=== PATIENT | female | born 1985 | race Caucasian/White ===

== ENCOUNTER → 2020-01-13 | Outpatient (CLI) | payer BC, SELFPAY ==
[2020-01-13 20:15] LABS: Chlamydia Trachomatis by PCR Negative (Negative); Neisserai gonorrhoeae by PCR Negative (Negative); Probe Check PASS; Sample Adequacy Control PASS; Specimen Processing Control PASS
== END | disposition home or self-care (01) ==
PROVIDERS: Visit Provider Obstetrics & Gynecology
DX: Z11.3 Encounter for screening for infections with a predominantly sexual mode of transmission (principal)
CPT/HCPCS: 87491; 87591

== ENCOUNTER → 2020-01-22 16:43 | Outpatient (CLI) | payer BC, SELFPAY ==
[2020-01-22 17:29] LABS: Color, Urine Yellow (Yellow); Glucose, Dipstick Normal (Normal); Ketone-Dipstick 5 mg/dl (Negative); Leukocyte Esterase-Dipstick Negative /ul (Negative); Nitrite-Dipstick Negative (Negative); Occult Blood-Urine Negative /ul (Negative); Protein-Dipstick Negative (Negative); Urine Bilirubin Dipstick Negative (Negative); Urine Clarity Clear (Clear); Urine Urobilinogen Normal (Normal)
[2020-01-22 17:37] LABS: Amphetamine Urine VISTA NEGATIVE (<1000 ng/mL); Barbiturate Urine VISTA NEGATIVE (< 200 ng/mL); Benzodiazepine Urine VISTA NEGATIVE (< 200 ng/mL); Cocaine Urine VISTA NEGATIVE (< 300 ng/mL); Ecstacy Urine VISTA NEGATIVE (< 500 ng/mL); Methadone Urine VISTA NEGATIVE (< 300 ng/mL); PCP Urine VISTA NEGATIVE (< 25 ng/mL); THC Urine VISTA POSITIVE (< 50 ng/mL); Vista UDS pH Range 6
[2020-01-22 17:47] LABS: Absolute Lymphocyte Count 1.37 X10^3/uL (0.83-4.51); Absolute Neutrophil Count 5.7 X10^3/uL (2.0-7.7); Basophil# 0.03 X10^3/uL; Basophil% 0.4 % (0-1); Eosinophil# 0.03 X10^3/uL; Eosinophils% 0.4 % (0-5); Hemoglobin 13.1 g/dL (12.0-15.0); Lymphocyte # 1.37 X10^3/ul (4.0); Lymphocyte % 18.1 % (19-41); Mean Corp Hgb Conc 34.5 g/dL (32-36); Mean Corpuscular Hgb 33.8 pg (27.0-32.0); Mean Corpuscular Volume 97.9 fL (81-99); Mean Platelet Vol. 10.4 fl (6.2-12.0); Monocyte# 0.47 X10^3/uL; Monocyte% 6.2 % (0-10); NRBC Flagged by Analyzer 0 % (0-5); Neutrophil # 5.65 X10^3/uL (2.7-7.7); Neutrophil % 74.6 % (47-70); Platelet Count 245 K/mm3 (150-450); RBC Distribution Width CV 12.6 % (11.6-14.6); RBC Distribution Width SD 43.8 fl (35.1-43.9); Red Blood Count 3.88 M/mm3 (4.2-5.4); White Blood Count 7.6 K/mm3 (4.4-11.0)
[2020-01-22 18:35] LABS: Thyroid Stim Hormone (TSH) 0.76 uIU/mL (0.358-3.74)
[2020-01-23 11:46] LABS: HIV - WCH Non-Reactive (Nonreactive); Hepatitis B Surface Antigen Non-Reactive (Nonreactive); Hepatitis C Antibody Non-Reactive (Nonreactive); Rubella IgG 68.4 IU/mL
[2020-01-29 01:39] LABS: Prenatal RPR NONREACTIVE (NONREACTIVE)
== END ==
PROVIDERS: Visit Provider Obstetrics & Gynecology
DX: Z34.81 Encounter for supervision of other normal pregnancy, first trimester (principal)
CPT/HCPCS: 36415; 80307; 81002; 84443; 85025; 86703; 86762; 86803; 87340

== ENCOUNTER → 2020-06-01 | Outpatient (CLI) | payer BC, SELFPAY ==
[2020-06-01 16:57] LABS: Hematocrit 33.9 % (37-47); Hemoglobin 11.3 g/dL (12.0-15.0); Mean Corp Hgb Conc 33.3 g/dL (32-36); Mean Corpuscular Hgb 34.9 pg (27.0-32.0); Mean Corpuscular Volume 104.6 fL (81-99); Mean Platelet Vol. 10.8 fl (6.2-12.0); Platelet Count 208 K/mm3 (150-450); RBC Distribution Width CV 13.2 % (11.6-14.6); RBC Distribution Width SD 49.9 fl (35.1-43.9); Red Blood Count 3.24 M/mm3 (4.2-5.4); White Blood Count 7.3 K/mm3 (4.4-11.0)
[2020-06-01 17:09] LABS: Glucose Challenge Gest 1H 50g 109 mg/dL (70-140)
[2020-06-01 17:16] LABS: Vitamin D,25 Hydroxy 23.3 ng/mL
== END | disposition home or self-care (01) ==
LOC: LABSPEC 16:34
PROVIDERS: Visit Provider Student in an Organized Health Care Education/Training Program
DX: O99.282 Endocrine, nutritional and metabolic diseases complicating pregnancy, second trimester (principal); Z3A.00 Weeks of gestation of pregnancy not specified; E55.9 Vitamin D deficiency, unspecified
CPT/HCPCS: 36415; 82306; 82950; 85027

== ENCOUNTER → 2020-08-05 | Outpatient (CLI) | payer BC, SELFPAY | END | disposition home or self-care (01) | LOC: LABSPEC 16:59 | PROVIDERS: Visit Provider Student in an Organized Health Care Education/Training Program | DX: Z36.85 Encounter for antenatal screening for Streptococcus B (principal) | CPT/HCPCS: 87081 ==

== ENCOUNTER → 2020-08-24 | Outpatient (CLI) | payer BC, SELFPAY | END | disposition home or self-care (01) | LOC: LABSPEC 17:22 | PROVIDERS: PCP Family Medicine; Referring Provider Student in an Organized Health Care Education/Training Program; Visit Provider Student in an Organized Health Care Education/Training Program | DX: Z03.818 Encounter for observation for suspected exposure to other biological agents ruled out (principal) | CPT/HCPCS: 87635; C9803; U0005; U0003 ==

== ENCOUNTER 2020-08-29 22:35 | Inpatient (IN) | payer BC, SELFPAY ==
[2020-08-29 21:55] VITALS: BMI 42.5
[2020-08-29 22:07] VITALS: TEMP 37.3; O2SAT 97; O2SAT 98
[2020-08-29 22:08] VITALS: BP 139/76; PULSE 75
[2020-08-29 22:33] LABS: ROM Internal Control Test YES-OK TO RESULT pt. (Internal QC)
[2020-08-29 22:34] LABS: ROM Patient Test POSITIVE (Negative)
[2020-08-29] MEDS: Lactated Ringers 500 ML 999 ML IV (23:00)
[2020-08-29 23:01] LABS: Amphetamine Urine VISTA NEGATIVE (<1000 ng/mL); Barbiturate Urine VISTA NEGATIVE (< 200 ng/mL); Benzodiazepine Urine VISTA NEGATIVE (< 200 ng/mL); Cocaine Urine VISTA NEGATIVE (< 300 ng/mL); Ecstacy Urine VISTA NEGATIVE (< 500 ng/mL); Methadone Urine VISTA NEGATIVE (< 300 ng/mL); PCP Urine VISTA NEGATIVE (< 25 ng/mL); THC Urine VISTA NEGATIVE (< 50 ng/mL); Vista UDS pH Range 6
[2020-08-29] MEDS: Mag Hydrox/Al Hydrox/Simeth 30 ML UDC PO (23:33)
[2020-08-29] MEDS: Lactated Ringers 1,000 ML 200 ML IV (23:33)
[2020-08-29 23:35] LABS: Absolute Lymphocyte Count 1.95 X10^3/uL (0.83-4.51); Absolute Neutrophil Count 6.6 X10^3/uL (2.0-7.7); Basophil# 0.02 X10^3/uL; Basophil% 0.2 % (0-1); Eosinophil# 0.12 X10^3/uL; Eosinophils% 1.3 % (0-5); Hematocrit 34.6 % (37-47); Hemoglobin 11.5 g/dL (12.0-15.0); Lymphocyte # 1.95 X10^3/ul (4.0); Lymphocyte % 20.6 % (19-41); Mean Corp Hgb Conc 33.2 g/dL (32-36); Mean Corpuscular Hgb 34.2 pg (27.0-32.0); Mean Platelet Vol. 11.9 fl (6.2-12.0); Monocyte# 0.68 X10^3/uL; Monocyte% 7.2 % (0-10); NRBC Flagged by Analyzer 0 % (0-5); Neutrophil # 6.56 X10^3/uL (2.7-7.7); Neutrophil % 69.2 % (47-70); Platelet Count 168 K/mm3 (150-450); RBC Distribution Width CV 13.4 % (11.6-14.6); RBC Distribution Width SD 50.6 fl (35.1-43.9); Red Blood Count 3.36 M/mm3 (4.2-5.4); White Blood Count 9.5 K/mm3 (4.4-11.0)
[2020-08-29 23:43] VITALS: PULSE 152; PULSE 190; O2SAT 81; O2SAT 84
[2020-08-29 23:50] VITALS: BP 136/69; PULSE 85
[2020-08-29 23:54] VITALS: BP 136/82; PULSE 85
[2020-08-29 23:58] VITALS: PULSE 83; O2SAT 99
[2020-08-30] VITALS (56 sets, daily range): BP systolic 97–193; BP diastolic 48–82; PULSE 70–99; RESP 14–16; TEMP 36.6–38.4; O2SAT 84–100
[2020-08-30] MEDS: fentaNYL-bupivacaine (epidural) 100 ML BAG EPIDURAL ×4 (00:40→14:34)
[2020-08-30] MEDS: Lactated Ringers 1,000 ML 200 ML IV ×2 (03:57→09:35)
[2020-08-30] MEDS: Lactated Ringers 500 ML 999 ML IV ×2 (04:43→09:06)
[2020-08-30] MEDS: Acetaminophen 500 MG Tablet PO ×2 (07:38→15:45)
--- NOTE | 2020-08-30 08:29 | HP.PCM_ITS ---
History and Physical Chief complaint: Leakage of clear fluid History of present illness: 35-year-old G1, P0 at 40 weeks and 2 days with BERTRAND: 08/28/1999 21 x 8-week ultrasound arrives with leakage of clear fluid. Denies headache, chest pain, shortness of breath, visual changes, nausea vomiting, right upper quadrant pain. Patient states good movement. 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 Past medical history: Denies Medications: vitamin Past surgical history: Cholecystectomy, nasal septoplasty, Lasix Allergies: No known drug allergies Social history: Former smoker, THC use, denies alcohol use Family history: Denies history DVT PE Review of systems: Besides the above pertinent positives a full review of systems was performed found to be negative Physical exam: Vital Signs Temp Pulse BP Pulse Ox 08/30/20 07:32 98.5 F 81 129/68 H 08/30/20 06:12 97 08/30/20 06:11 84 08/30/20 06:10 98.9 F 86 132/66 H 97 08/30/20 05:05 99.9 F H 88 129/70 H 08/30/20 04:10 98.5 F 08/30/20 04:06 85 110/52 L 98 08/30/20 03:28 98.2 F 82 134/65 H 08/30/20 03:27 87 97 08/30/20 02:30 82 115/57 L 08/30/20 02:29 100.0 F H 98 08/30/20 01:45 85 98/49 L 08/30/20 01:44 100.2 F H 98 08/30/20 00:54 93 122/58 H 08/30/20 00:53 99.3 F H 08/30/20 00:50 100.3 F H 08/30/20 00:49 81 128/62 H 08/30/20 00:44 93 141/73 H 08/30/20 00:39 86 134/65 H 08/30/20 00:35 99 173/72 H 08/30/20 00:29 89 124/62 H 08/30/20 00:26 87 150/65 H 08/30/20 00:19 88 135/65 H 100 08/30/20 00:14 80 172/79 H 08/30/20 00:13 91 100 08/30/20 00:09 83 151/71 H 08/30/20 00:08 86 96 08/30/20 00:04 78 140/65 H 08/30/20 00:03 97 08/30/20 00:00 90 193/82 H 08/29/20 23:58 83 99 08/29/20 23:54 85 136/82 H 08/29/20 23:50 85 136/69 H 08/29/20 23:43 152 H 84 08/29/20 22:08 75 139/76 H 08/29/20 22:07 99.1 F 97 General: Normal-appearing no acute distress HEENT: Normocephalic atraumatic no cervical lymphadenopathy Cardiac and respiratory: No labored believe breathing no use of accessory muscles Abdomen: Gravid Extremities: No peripheral edema Neuro: Grossly intact Mom's Labs & Results 08/29/20 08/29/20 08/29/20 22:00 22:00 23:05 WBC 9.5 RBC 3.36 L Hgb 11.5 L Hct 34.6 L MCV 103.0 H MCH 34.2 H MCHC 33.2 RDW Std Deviation 50.6 H RDW Coeff of Carlee 13.4 Plt Count 168 MPV 11.9 Immature Gran % (Auto) 1.500 H Neut % (Auto) 69.2 Lymph % (Auto) 20.6 [place] % (Auto) 7.2 Eos % (Auto) 1.3 Baso % (Auto) 0.2 Absolute Neuts (auto) 6.6 Absolute Lymphs (auto) 1.95 Nucleated RBC % 0 Vag Amniotic Fld Detect POSITIVE H Urine Opiates Screen NEGATIVE Urine Methadone Screen NEGATIVE Ur Barbiturates Screen NEGATIVE Ur Phencyclidine Scrn NEGATIVE Ur Amphetamines Screen NEGATIVE U Methamphetamin-MDMA NEGATIVE U Benzodiazepines Scrn NEGATIVE Urine Cocaine Screen NEGATIVE U Cannabinoids Screen NEGATIVE Ur Drug Screen Comment Blood Type Antibody Screen 08/29/20 23:05 WBC RBC Hgb Hct MCV MCH MCHC RDW Std Deviation RDW Coeff of Carlee Plt Count MPV Immature Gran % (Auto) Neut % (Auto) Lymph % (Auto) [place] % (Auto) Eos % (Auto) Baso % (Auto) Absolute Neuts (auto) Absolute Lymphs (auto) Nucleated RBC % Vag Amniotic Fld Detect Urine Opiates Screen Urine Methadone Screen Ur Barbiturates Screen Ur Phencyclidine Scrn Ur Amphetamines Screen U Methamphetamin-MDMA U Benzodiazepines Scrn Urine Cocaine Screen U Cannabinoids Screen Ur Drug Screen Comment Blood Type O POSITIVE Antibody Screen NEGATIVE Labs Blood Type: O RH: POSITIVE RPR/VDRL/Syphilis Nonreactive Rubella status Immune HbSAg Negative Date Done: 01/22/20 Chlamydia Negative Gonorrhea Negative HIV/AIDS Non-Reactive Group B Strep: Negative Assessment and plan: This 35-year-old with spontaneous rupture of membranes. -[facility] -Routine orders -Anesthesia to see
[2020-08-30] MEDS: Oxytocin 30 units/NS 500 ml 30 UNITS/500 ML IV.SOLN IV (12:34)
[2020-08-30] MEDS: Lactated Ringers 1,000 ML 75 ML IV (15:04)
[2020-08-30] MEDS: DiphenhydrAMINE 50 MG/ML Syringe IV (16:06)
--- NOTE | 2020-08-30 17:10 | PCM.PN.BLA ---
Progress Note CE /0. FHR cat I 150/mod oswaldo/+accel/no decel. toco q3-6. Pitocin at 6. Pt given benadryl for edematous cervix around 1600 today, per RN and exam edema has improved. She had pushed for about 1.5 hours without improvement in station prior to Benadryl administration, at that time it was noted that her cervix was 8 cm with thick edematous cervix. Station is unchanged. Discussed continued expectant management vs section. Patient would like to wait about 1 hour to reassess. STROKE Vital Signs/Narrative: Vital Signs Temp Pulse BP Pulse Ox 08/30/20 17:05 97 88 08/30/20 15:07 85 116/62 08/30/20 14:43 100.4 F H 88 123/59 H 08/30/20 13:38 99.6 F H 91 128/79 H
--- NOTE | 2020-08-30 20:10 | OP.PCM_ITS ---
Delivery Final BERTRAND: 08/28/20 Final BERTRAND Source: US <20 weeks Gestational age: 40 Weeks and 2 Days Type of Anesthesia:: Epidural Date of Procedure: 08/30/20 Pre-Operative Diagnosis: Arrest of dilation Post-Operative Diagnosis: Arrest of dilation. Occiput posterior, asynclitic lie. Indications: 35-year-old G1, P0 at 40 weeks and 2 days admitted with spontaneous rupture of membranes. Patient progressed through labor. She proceeded to push for 1-1/2 hours, however upon repeat cervical check cervix was noted to be very edematous and 8 cm dilated. At that time Benadryl was given and patient continued on Pitocin. After several hours cervix continued to be 8 cm and 0 station. Additionally patient diagnosed with suspected intrapartum intraamniotic infecti on. At that point decision for primary section was made. All risks, benefits, alternatives were discussed with the patient. Risks include but are not limited to: Risk of bleeding to the point of transfusion, infection, injury to surrounding tissue including bowel or bladder requiring prolonged Carrero catheter use, VTE, ICU admission. Patient aware and consented. Description of Procedure: Patient taken to the operating room, epidural dosed. Patient placed in the supine position with a left lateral tilt. Prepped and draped in usual sterile fashion. Pfannenstiel skin incision made and carried through subcutaneous tissue. Fascia nicked on either side of the midline and extended bilaterally using Ocampo scissors. Subcutaneous bleeding stopped with use of Bovie. Bj clamps used to grasp superior fascial edge which was tented up and underlying rectus muscles were dissected off bluntly. Bj clamps moved to inferior fascial edge which was tented up and underlying rectus muscles dissected off bluntly and sharply at midline using Ocampo scissors. Rectus muscles were superiorly, peritoneum grasped with 2 hemostats, incised using Metzenarturo aum scissors between. Peritoneal entry extended bluntly. Bladder blade placed, vesicouterine peritoneum identified and bladder flap created using Metzenbaum scissors. Bladder blade replaced. Low transverse uterine incision made with scalpel, extended bluntly. Hand placed into the uterus noting occiput posterior position, asynclitic lie. head flexed and elevated to the level of the uterine incision, with the assistance of gentle fundal pressure head delivered followed by body. No nuchal cord. Cord clamped and cut. Baby handed to nursing. Spontaneous delivery of placenta. Uterus exteriorized and cleared of all clots with lap. Left uterine incision extension noted with arterial bleeding. This was closed with a running locking stitch. Transverse portion of the uterine incision closed with a running locking stitch. This was followed by a vertical imbricating stitch. Oozing noted on the right side of the uterine closure which was stopped with 2 [id number] stitches. Left extension was inspected again noting small area of open incision which was closed with [id number] stitch. Incision appeared hemostatic. Uterus replaced into the abdomen. Oozing noted on the left portion of the incision which was stopped with emexio-tb-hyqla stitches. Deb placed along the incision line. Peritoneum closed with a running stitch. Fascia closed with a running stitch. Subcutaneous tissue closed with a running stitch. Skin closed with running subcuticular stitch. At the end of the procedure all needle, lap, sponge counts were correct x3. UOP: 400cc Amniotic Membrane Rupture Type: Spontaneous Amniotic Fluid Description: Clear Cord Entanglement: None Esitmated Blood Loss (ml): 1000cc Gender: Male (1 minute): 8 (5 minute): 9
--- NOTE | 2020-08-30 20:39 | DCINST_ITS ---
Discharge Activity: Return to Normal Activity, May not drive while taking narcotic pain medications., May Shower May resume sexual activity in: 6-8 weeks Weight Bearing Status: Weight bearing as tolerated Call your doctor if your incision/area has: Continuous Slow Oozing, Sudden Increased Bleeding, Increased Pain/ Swelling, Increased Redness Call your doctor if you observe: Fever of 101 or Higher, Inability to have a bowel movement, Using more than one pad per hour, Shortness of breath, Dizziness Cleanse incision/area with: Soap & Water Additional Instructions: If you experience any of the following, contact your healthcare provider. * Bleeding that soaks a pad every hour for 2 hours * Fever 100.4 or higher * Unrelieved incision or abdominal pain * Swelling, redness, discharge or bleeding from your incision or episiotomy site * Your incision begins to separate * Problems urinating (including inability to urinate or burning while urinating). * Visual changes * Severe headache * Flu-like symptoms * Pain or redness in one of both of your breasts * Pain, warmth, tenderness or swelling in your legs, especially the calf area * Frequent nausea and vomiting * Symptoms of depression or anxiety If you experience any of the following, call 911 or go to the nearest Emergency Room. * Chest pain * Problems breathing * Seizure activity * Partial or complete paralysis of a body part, slurred speech, weakness or drooping of the face, or a sudden inability to walk or hold your balance Allergies/Adverse Reactions: Allergies No Known Allergies Allergy (Verified 08/29/20 22:12) Medications to take at Discharge Cetirizine HCl [Zyrtec] 10 mg PO 08/29/20 Docosahexanoic Acid [ Dha] 08/29/20 Loratadine [Claritin] 08/29/20 Montelukast [Singulair] 10 mg PO DAILY 08/29/20 RX: Oxycodone [Oxyir] 5 mg PO Q6H PRN PRN 5 Days #21 tab 09/02/20 The following prescriptions were given: RX: Oxycodone [Oxyir] 5 mg PO Q6H PRN PRN 5 Days #21 tab PRN Reason: Pain Score 6-10 Transmission Status: Received by [facility] #[id number] Follow-Up: Call to make an appointment with your doctor for an incision check in 1-2 weeks. You will also need a 6 week post- follow up appointment. Test results from this visit will be discussed in further detail at your follow- up appointment, if applicable. Please Follow Up With: Lou Bermeo DO When: 2 week incision check, 6 week Primary Care Physician: Venita Mi DO [Primary Care Provider] -
[2020-08-30] MEDS: Oxytocin 30 units/NS 500 ml 30 UNITS/500 ML IV.SOLN 167 UNITS IV (21:14)
[2020-08-30] MEDS: HYDROmorphone Inj 0.2 MG/ML SYRINGE 0.5 MG IV (21:15)
[2020-08-30] MEDS: Ketorolac 30 MG/ML Syringe IV (23:56)
[2020-08-30] MEDS: Lactated Ringers 1,000 ML 100 ML IV (23:57)
[2020-08-30] MEDS: Acetaminophen 500 MG Tablet 1000 MG PO (23:57)
[2020-08-31] VITALS (7 sets, daily range): BP systolic 106–123; BP diastolic 55–70; PULSE 82–101; RESP 16–18; TEMP 36.3–36.9; O2SAT 97–100
--- NOTE | 2020-08-31 | NURSING ---
epidural catheter removed. blue tip intact. gauze and bandaid provided to injection site. pt tolerated well. no further needs
--- NOTE | 2020-08-31 01:07 | NURSING ---
this RN initiated incentive spirometer with 10 repetitions at 1750. pt aware of how often to use this device and independently able to complete task.
[2020-08-31 05:00] LABS: Hematocrit 26.6 % (37-47); Mean Corp Hgb Conc 33.8 g/dL (32-36); Mean Corpuscular Hgb 34.9 pg (27.0-32.0); Mean Corpuscular Volume 103.1 fL (81-99); Mean Platelet Vol. 11.5 fl (6.2-12.0); Platelet Count 152 K/mm3 (150-450); RBC Distribution Width CV 13.9 % (11.6-14.6); RBC Distribution Width SD 51.5 fl (35.1-43.9); Red Blood Count 2.58 M/mm3 (4.2-5.4); White Blood Count 14.5 K/mm3 (4.4-11.0)
[2020-08-31] MEDS: Ketorolac 30 MG/ML Syringe IV ×3 (06:22→17:51)
[2020-08-31] MEDS: 0.9% Saline Lock 10 ML Syringe IV ×4 (06:23→17:59)
[2020-08-31] MEDS: Acetaminophen 500 MG Tablet 1000 MG PO ×4 (06:23→23:59)
[2020-08-31] MEDS: oxyCODONE 5 MG Tablet PO ×3 (08:16→22:11)
[2020-08-31] MEDS: Loratadine 10 MG Tablet PO (10:28)
[2020-08-31] MEDS: Senna/Docusate Sodium 1 Tablet PO (10:28)
[2020-08-31] MEDS: Montelukast 10 MG Tablet PO (11:19)
[2020-08-31] MEDS: Enoxaparin 40 MG/0.4 ML Syringe SC (11:19)
--- NOTE | 2020-08-31 12:19 | PCM.PN.OB ---
Subjective: POD#1 Reports discomfort, pain medication helping. Encouraged ambulation. Swelling present. - Physical Exam Vitals/I&O's: Vital Signs Temp Pulse Resp BP Pulse Ox 98.3 F 88 16 116/63 98 08/31/20 08:15 08/31/20 08:15 08/31/20 08:15 08/31/20 08:15 08/31/20 08:15 Oxygen Delivery Method Room Air Weight: 112.491 kg Body Mass Index (BMI) 42.5 Intake and Output for Last 24 Hours 08/29/20 08/30/20 08/31/20 23:59 23:59 23:59 Intake Total 500 / 500 5319.13 / 5319.13 1638.33 / 1638.33 Output Total 500 / 500 2250 / 2250 Balance 500 / 500 4819.13 / 4819.13 -611.67 / -611.67 General: Alert, Oriented x3 HEENT: Atraumatic, Normocephalic Neck: Supple Lungs: Normal air movement Cardiovascular: Regular rate Abdomen: Soft - mildly tender, dressing c/d. uterus 2 cm below umbilicus Extremities: Edema - +2 edema Neurological: Cranial nerves II-XII grossly intact Psych/Mental Status: Normal Affect, Appropriate Laboratory Results 08/31/20 04:50: WBC 14.5 H, RBC 2.58 L, Hgb 9.0 L, Hct 26.6 L, MCV 103.1 H, MCH 34.9 H, MCHC 33.8, RDW Std Deviation 51.5 H, RDW Coeff of Carlee 13.9, Plt Count 152, MPV 11.5 Current Medications Acetaminophen (Acetaminophen 500 Mg Tablet) 1,000 mg PO Q6 [facility] Last Admin: 08/31/20 06:23 Dose: 1,000 mg Documented by: Bisacodyl (Bisacodyl 10 Mg Suppository) 10 mg RECTAL UD PRN PRN Reason: If no BM Enoxaparin Sodium (Enoxaparin 40 Mg/0.4 Ml Syringe) 40 mg SC DAILY [facility] Last Admin: 08/31/20 11:19 Dose: 40 mg Documented by: Hydrocortisone (Hydrocortisone 2.5% Crm) 1 applic TOPICAL TID PRN PRN; Protocol PRN Reason: Discomfort Lactated Ringer's () 1,000 mls @ 100 mls/hr IV .Q10H [facility] Last Infusion: 08/31/20 08:20 Dose: Infused Documented by: Ibuprofen (Ibuprofen 600 Mg Tablet) 600 mg PO Q6 [facility] Ketorolac Tromethamine (Ketorolac 30 Mg/Ml Syringe) 30 mg IV Q6 [facility] Stop: 08/31/20 18:01 Last Admin: 08/31/20 06:22 Dose: 30 mg Documented by: Loratadine (Loratadine 10 Mg Tablet) 10 mg PO DAILY [facility] Last Admin: 08/31/20 10:28 Dose: 10 mg Documented by: Montelukast Sodium (Montelukast 10 Mg Tablet) 10 mg PO DAILY [facility] Last Admin: 08/31/20 11:19 Dose: 10 mg Documented by: Ondansetron HCl (Ondansetron 4 Mg/2 Ml Vial) 4 mg IV Q4H PRN PRN PRN Reason: Nausea Oxycodone HCl (Oxycodone 5 Mg Tablet) 5 mg PO Q4H PRN PRN PRN Reason: Pain Score 6-10 Last Admin: 08/31/20 08:16 Dose: 5 mg Documented by: Prochlorperazine Edisylate (Prochlorperazine 10 Mg/2 Ml Vial) 10 mg IV Q6H PRN PRN PRN Reason: NAUSEA Senna/Docusate Sodium (Senna/Docusate Sodium 1 Tablet) 0 tablet PO DAILY [facility] Last Admin: 08/31/20 10:28 Dose: 1 tablet Documented by: Simethicone (Simethicone 80 Mg Tablet) 80 mg PO PCHS PRN PRN Reason: Indigestion/stomach pain Last Admin: 08/31/20 08:15 Dose: 80 mg Documented by: Sodium Chloride (0.9% Saline Lock 10 Ml Syringe) 5 - 15 ml IV UD PRN PRN Reason: SALINE FLUSH Last Admin: 08/31/20 08:19 Dose: 10 ml Documented by: Zolpidem Tartrate (Zolpidem Tartrate 5 Mg Tablet) 5 mg ORAL QHS PRN PRN PRN Reason: Insomnia Medical Necessity - Tobacco Use Smoking Status: Former smoker Assessment/Plan POD#1 primary section for failure to progress. Acute blood loss anemia - iron supplement. Breast feeding. Suspected triple I - last dose of antibiotics due tonight of gentamicin. Afebrile today, Leukocytosis secondary to this and post op state. Home likely tomorrow once baby observation is completed.
[2020-08-31] MEDS: Ibuprofen 600 MG Tablet PO (23:59)
[2020-09-01] MEDS: Famotidine 20 MG Tablet PO (02:16)
[2020-09-01 02:24] VITALS: BP 132/68; PULSE 98; RESP 16; TEMP 36.7; O2SAT 95
[2020-09-01] MEDS: Acetaminophen 500 MG Tablet 1000 MG PO ×3 (06:43→18:18)
[2020-09-01] MEDS: Ibuprofen 600 MG Tablet PO ×3 (06:44→18:18)
--- NOTE | 2020-09-01 08:37 | PN.OBGYN_ITS ---
Subjective: Reports bruising on her abdomen since the . She is out of bed, ambulating, passing flatus. Pain is well controlled, just sore on transferring. Denies heavy lochia, chest pain, shortness of breath. Objective: AVSS - Physical Exam Vitals/I&O's: Vital Signs Temp Pulse Resp BP Pulse Ox 98.1 F 98 16 132/68 H 95 09/01/20 02:24 09/01/20 02:24 09/01/20 02:24 09/01/20 02:24 09/01/20 02:24 Oxygen Delivery Method Room Air Weight: 112.491 kg Body Mass Index (BMI) 42.5 Intake and Output for Last 24 Hours 08/30/20 08/31/20 09/01/20 23:59 23:59 23:59 Intake Total 5319.13 / 5319.13 1695.08 / 1695.08 Output Total 500 / 500 2950 / 2950 Balance 4819.13 / 4819.13 -1254.92 / -1254.92 General: Alert, Oriented x3, Cooperative, No apparent distress HEENT: Atraumatic, Normocephalic Lungs: Clear to auscultation, Normal air movement Cardiovascular: Regular rate, Regular Rhythm, Normal S1, Normal S2 Abdomen: Soft, Non Tender, Non-Distended, - - Fundus firm and nontender, lochia scant, incisional dressing c/d/i; small amount of reticular like bruising in left upper abdomen and nontender Extremities: No Calf Tenderness, - - trace LE edema Neurological: Neuro grossly intact Psych/Mental Status: Normal Affect, Appropriate, Alert and oriented to time, place, person, mood and affect Current Medications Acetaminophen (Acetaminophen 500 Mg Tablet) 1,000 mg PO Q6 [facility] Last Admin: 09/01/20 06:43 Dose: 1,000 mg Documented by: Bisacodyl (Bisacodyl 10 Mg Suppository) 10 mg RECTAL UD PRN PRN Reason: If no BM Enoxaparin Sodium (Enoxaparin 40 Mg/0.4 Ml Syringe) 40 mg SC DAILY [facility] Last Admin: 08/31/20 11:19 Dose: 40 mg Documented by: Famotidine (Famotidine 20 Mg Tablet) 20 mg PO BID PRN PRN PRN Reason: INDIGESTION Last Admin: 09/01/20 02:16 Dose: 20 mg Documented by: Hydrocortisone (Hydrocortisone 2.5% Crm) 1 applic TOPICAL TID PRN PRN; Protocol PRN Reason: Discomfort Ibuprofen (Ibuprofen 600 Mg Tablet) 600 mg PO Q6 [facility] Last Admin: 09/01/20 06:44 Dose: 600 mg Documented by: Loratadine (Loratadine 10 Mg Tablet) 10 mg PO DAILY [facility] Last Admin: 08/31/20 10:28 Dose: 10 mg Documented by: Montelukast Sodium (Montelukast 10 Mg Tablet) 10 mg PO DAILY [facility] Last Admin: 08/31/20 11:19 Dose: 10 mg Documented by: Ondansetron HCl (Ondansetron 4 Mg/2 Ml Vial) 4 mg IV Q4H PRN PRN PRN Reason: Nausea Oxycodone HCl (Oxycodone 5 Mg Tablet) 5 mg PO Q4H PRN PRN PRN Reason: Pain Score 6-10 Last Admin: 08/31/20 22:11 Dose: 5 mg Documented by: Prochlorperazine Edisylate (Prochlorperazine 10 Mg/2 Ml Vial) 10 mg IV Q6H PRN PRN PRN Reason: NAUSEA Senna/Docusate Sodium (Senna/Docusate Sodium 1 Tablet) 0 tablet PO DAILY [facility] Last Admin: 08/31/20 10:28 Dose: 1 tablet Documented by: Simethicone (Simethicone 80 Mg Tablet) 80 mg PO PCHS PRN PRN Reason: Indigestion/stomach pain Last Admin: 08/31/20 22:11 Dose: 80 mg Documented by: Sodium Chloride (0.9% Saline Lock 10 Ml Syringe) 5 - 15 ml IV UD PRN PRN Reason: SALINE FLUSH Last Admin: 08/31/20 17:59 Dose: 10 ml Documented by: Zolpidem Tartrate (Zolpidem Tartrate 5 Mg Tablet) 5 mg ORAL QHS PRN PRN PRN Reason: Insomnia Medical Necessity - Tobacco Use Smoking Status: Former smoker Assessment/Plan 35yo G1 POD#2 s/p PLTCS doing well. -Rh positive -Routine postop care - -Post op anemia - Fe supplementation -Plan for d/c home tomorrow - infant being monitored for hyperbilirubinemia
[2020-09-01 09:53] VITALS: BP 104/49; PULSE 83; RESP 16; TEMP 36.3; O2SAT 98
[2020-09-01] MEDS: Senna/Docusate Sodium 1 Tablet PO (09:59)
[2020-09-01] MEDS: Montelukast 10 MG Tablet PO (09:59)
[2020-09-01] MEDS: Enoxaparin 40 MG/0.4 ML Syringe SC (09:59)
[2020-09-01] MEDS: Loratadine 10 MG Tablet PO (09:59)
[2020-09-01 15:00] VITALS: BP 118/57; PULSE 105; RESP 16; TEMP 36.8; O2SAT 99
[2020-09-01] MEDS: oxyCODONE 5 MG Tablet PO (15:49)
[2020-09-01 20:51] VITALS: BP 114/63; PULSE 82; RESP 18; TEMP 36.8
[2020-09-02] MEDS: Acetaminophen 500 MG Tablet 1000 MG PO ×3 (00:01→13:28)
[2020-09-02] MEDS: Ibuprofen 600 MG Tablet PO ×3 (00:02→13:29)
[2020-09-02 01:57] VITALS: BP 110/48; PULSE 84; RESP 18; TEMP 36.7
--- NOTE | 2020-09-02 07:37 | PN.OBGYN_ITS ---
Objective: POD#3. Feeling improved. Showered. Is ambulating some. - Physical Exam Vitals/I&O's: Vital Signs Temp Pulse Resp BP Pulse Ox 98.0 F 84 18 110/48 L 99 09/02/20 01:57 09/02/20 01:57 09/02/20 01:57 09/02/20 01:57 09/01/20 15:00 Oxygen Delivery Method Room Air Weight: 112.491 kg Body Mass Index (BMI) 42.5 Intake and Output for Last 24 Hours 08/31/20 09/01/20 09/02/20 23:59 23:59 23:59 Intake Total 1695.08 / 1695.08 Output Total 2950 / 2950 Balance -1254.92 / -1254.92 General: Alert, Oriented x3, No apparent distress HEENT: Atraumatic, Normocephalic Neck: Supple Lungs: Normal air movement Cardiovascular: Regular rate Abdomen: Soft - dressing c/d. uterus 2 cm below umbilicus Extremities: Edema - +1 calf edema Neurological: Cranial nerves II-XII grossly intact Psych/Mental Status: Normal Affect, Appropriate Current Medications Acetaminophen (Acetaminophen 500 Mg Tablet) 1,000 mg PO Q6 [facility] Last Admin: 09/02/20 06:51 Dose: 1,000 mg Documented by: Bisacodyl (Bisacodyl 10 Mg Suppository) 10 mg RECTAL UD PRN PRN Reason: If no BM Enoxaparin Sodium (Enoxaparin 40 Mg/0.4 Ml Syringe) 40 mg SC DAILY [facility] Last Admin: 09/01/20 09:59 Dose: 40 mg Documented by: Famotidine (Famotidine 20 Mg Tablet) 20 mg PO BID PRN PRN PRN Reason: INDIGESTION Last Admin: 09/01/20 02:16 Dose: 20 mg Documented by: Hydrocortisone (Hydrocortisone 2.5% Crm) 1 applic TOPICAL TID PRN PRN; Protocol PRN Reason: Discomfort Ibuprofen (Ibuprofen 600 Mg Tablet) 600 mg PO Q6 [facility] Last Admin: 09/02/20 06:51 Dose: 600 mg Documented by: Loratadine (Loratadine 10 Mg Tablet) 10 mg PO DAILY [facility] Last Admin: 09/01/20 09:59 Dose: 10 mg Documented by: Montelukast Sodium (Montelukast 10 Mg Tablet) 10 mg PO DAILY [facility] Last Admin: 09/01/20 09:59 Dose: 10 mg Documented by: Ondansetron HCl (Ondansetron 4 Mg/2 Ml Vial) 4 mg IV Q4H PRN PRN PRN Reason: Nausea Oxycodone HCl (Oxycodone 5 Mg Tablet) 5 mg PO Q4H PRN PRN PRN Reason: Pain Score 6-10 Last Admin: 09/01/20 15:49 Dose: 5 mg Documented by: Prochlorperazine Edisylate (Prochlorperazine 10 Mg/2 Ml Vial) 10 mg IV Q6H PRN PRN PRN Reason: NAUSEA Senna/Docusate Sodium (Senna/Docusate Sodium 1 Tablet) 0 tablet PO DAILY [facility] Last Admin: 09/01/20 09:59 Dose: 1 tablet Documented by: Simethicone (Simethicone 80 Mg Tablet) 80 mg PO PCHS PRN PRN Reason: Indigestion/stomach pain Last Admin: 08/31/20 22:11 Dose: 80 mg Documented by: Sodium Chloride (0.9% Saline Lock 10 Ml Syringe) 5 - 15 ml IV UD PRN PRN Reason: SALINE FLUSH Last Admin: 08/31/20 17:59 Dose: 10 ml Documented by: Zolpidem Tartrate (Zolpidem Tartrate 5 Mg Tablet) 5 mg ORAL QHS PRN PRN PRN Reason: Insomnia Medical Necessity - Tobacco Use Smoking Status: Former smoker Assessment/Plan POD#3 s/p PLTCS for arrest of dilation. Doing well. Home likely later today. Seeing , baby's labs pending.
[2020-09-02 09:30] VITALS: BP 119/60; PULSE 90; RESP 16; TEMP 36.9
[2020-09-02] MEDS: Montelukast 10 MG Tablet PO (10:44)
[2020-09-02] MEDS: Loratadine 10 MG Tablet PO (10:44)
[2020-09-02] MEDS: Senna/Docusate Sodium 1 Tablet PO (10:44)
[2020-09-02] MEDS: Enoxaparin 40 MG/0.4 ML Syringe SC (10:45)
[2020-09-02 14:00] VITALS: BP 113/52; PULSE 88; RESP 18; TEMP 36.9
--- NOTE | 2020-09-10 16:52 | PCM.DC.SUM ---
Discharge Date and Diagnosis Date of Admission: 08/30/20 Date of Discharge: 09/03/20 - Primary Discharge Diagnosis Acute Problems: s/p section, obesity - Secondary Discharge Diagnosis Chronic Problems: none Hospital Course and Treatment Imaging Results: none Consultations 08/29/20 22:35 Consult: Anesthesia Routine Comment: Reason For Exam: Labor Operations: - - section Procedures: None Summary of Care Provided: The patient is a 35 year old F presented with spontaneous rupture of membranes, progressed through labor to 8 cm dilation. Had arrest of dilation. section done. Patient stayed 3 days due to high bilirubin. - Physical Exam Vitals/I&O's: Vital Signs Temp Pulse Resp BP Pulse Ox 98.4 F 88 18 113/52 L 99 09/02/20 14:00 09/02/20 14:00 09/02/20 14:00 09/02/20 14:00 09/01/20 15:00 Oxygen Delivery Method Room Air Weight: 112.491 kg Body Mass Index (BMI) 42.5 General: Alert, Oriented x3, No apparent distress HEENT: Atraumatic, Normocephalic Neck: Supple Lungs: Clear to auscultation, Normal air movement Cardiovascular: Regular rate, Regular Rhythm Abdomen: Bowel Sounds Present - dressing c/d, uterus 2 cm below umbilicus, Soft Extremities: Edema Skin: No breakdown Neurological: Cranial nerves II-XII grossly intact Psych/Mental Status: Normal Affect, Appropriate Discharge Diet: No Restrictions Discharge Activity: Return to Normal Activity, May not drive while taking narcotic pain medications., May Shower May resume sexual activity in: 6-8 weeks Weight Bearing Status: Weight bearing as tolerated Call your doctor if your incision/area has: Continuous Slow Oozing, Sudden Increased Bleeding, Increased Pain/ Swelling, Increased Redness Call your doctor if you observe: Fever of 101 or Higher, Inability to have a bowel movement, Using more than one pad per hour, Shortness of breath, Dizziness Cleanse incision/area with: Soap & Water Home Medications: Medications to take at Discharge Cetirizine HCl [Zyrtec] 10 mg PO 08/29/20 Docosahexanoic Acid [ Dha] 08/29/20 Loratadine [Claritin] 08/29/20 Montelukast [Singulair] 10 mg PO DAILY 08/29/20 Primary Care Physician: Venita Mi DO [Primary Care Provider] - Please Follow Up With: Lou Bermeo DO When: 2 week incision check, 6 week Medical Necessity - Tobacco Use Smoking Status: Former smoker Meaningful Use Info Meaningful Use Diagnoses (Choose all that apply): None applicable
== END 2020-09-02 15:20 | disposition home or self-care (01) | DRG 786 ==
LOC: WPOUT 22:41 → WP 22:41
PROVIDERS: Obstetrics & Gynecology; Admitting Provider Student in an Organized Health Care Education/Training Program; PCP Family Medicine; Visit Provider Student in an Organized Health Care Education/Training Program
DX: O62.0 Primary inadequate contractions (principal); O41.1230 Chorioamnionitis, third trimester, not applicable or unspecified; O99.324 Drug use complicating childbirth; D62 Acute posthemorrhagic anemia; O42.92 Full-term premature rupture of membranes, unspecified as to length of time between rupture and onset of labor; O90.81 Anemia of the puerperium; O99.214 Obesity complicating childbirth; E66.01 Morbid (severe) obesity due to excess calories; F12.90 Cannabis use, unspecified, uncomplicated; Z3A.40 40 weeks gestation of pregnancy; Z37.0 Single live birth; Z87.891 Personal history of nicotine dependence
CPT/HCPCS: 59025; 59050; 80307; 84112; 85025; 85027; 86850; 86900; 86901; 99218; J7120; A4216; G0378; J2405

== ENCOUNTER → 2020-10-19 10:30 | Outpatient (CLI) | payer BC, SELFPAY ==
[2020-10-22 20:32] LABS: HPV APTIMA, High Risk Negative (Negative)
== END ==
PROVIDERS: PCP Family Medicine; Visit Provider Student in an Organized Health Care Education/Training Program
DX: Z12.4 Encounter for screening for malignant neoplasm of cervix (principal)
CPT/HCPCS: 87624; 88175; G0145

== ENCOUNTER → 2021-06-06 14:46 | Outpatient (CLI) | payer BC, SELFPAY ==
[2021-06-06 15:30] LABS: Mean Corp Hgb Conc 33.3 g/dL (32-36); Mean Corpuscular Hgb 31.1 pg (27.0-32.0); Mean Corpuscular Volume 93.3 fL (81-99); Mean Platelet Vol. 10.1 fl (6.2-12.0); Platelet Count 253 K/mm3 (150-450); RBC Distribution Width CV 12.2 % (11.6-14.6); Red Blood Count 4.18 M/mm3 (4.2-5.4); White Blood Count 5.8 K/mm3 (4.4-11.0)
[2021-06-06 15:48] LABS: Vitamin D,25 Hydroxy 22.6 ng/mL
[2021-06-06 15:53] LABS: Thyroid Stim Hormone (TSH) 0.69 uIU/mL (0.358-3.74)
== END ==
PROVIDERS: PCP Family Medicine; Visit Provider Student in an Organized Health Care Education/Training Program
DX: R53.81 Other malaise (principal); Z13.1 Encounter for screening for diabetes mellitus
CPT/HCPCS: 36415; 82306; 83036; 84443; 85027

== ENCOUNTER 2021-06-22 10:39 | Outpatient (RCR) | payer BC, SELFPAY | END 2021-07-22 23:59 | LOC: NS 10:39 | PROVIDERS: PCP Family Medicine; Visit Provider Student in an Organized Health Care Education/Training Program | DX: Z71.3 Dietary counseling and surveillance (principal); E66.9 Obesity, unspecified; Z68.33 Body mass index [BMI] 33.0-33.9, adult | CPT/HCPCS: 97802 ==